=== PATIENT | male | born 1985 | race Caucasian/White ===

== ENCOUNTER 2019-05-31 22:58 | Emergency (ER) | payer MEDICAID ==
[2019-05-31] MEDS ORDERED: CEFAZOLIN 2 GM/D5W RTU 2 GM/50 ML RTUPB IV ONE (23:08)
[2019-05-31] MEDS ORDERED: DIPH/PERTUSS(ACELL)/TETANUS VAC/PF 0.5 ML SYR (>=10YO) IM ONE (23:08)
[2019-05-31] MEDS ORDERED: CEFAZOLIN 1 GM/D5W RTU 2 GM/100 ML RTUPB IV ONE (23:12)
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
[2019-05-31] MEDS ORDERED: ONDANSETRON HCL INJ/PF 4 MG/2 ML SDV IV ONE (23:28)
[2019-05-31 23:31] LABS: ABSOLUTE BASOPHILS # (AUTO) 0.1 10^3/uL (0.0-0.2); ABSOLUTE EOSINOPHILS # (AUTO) 0.3 10^3/uL (0.0-0.6); ABSOLUTE LYMPHOCYTES (AUTO) 4.1 10^3/uL (0.5-4.7); ABSOLUTE MONOCYTES (AUTO) 0.9 10^3/uL (0.1-1.4); ABSOLUTE NEUT (AUTO) 5.9 10^3/uL (1.7-8.2); BASOPHILS % (AUTO) 0.6 % (0-2); EOSINOPHILS % (AUTO) 2.7 % (0-6); HEMOGLOBIN 19.6 g/dL (13.5-17.0); LYMPHOCYTES % (AUTO) 36.2 % (13-45); MEAN CORPUSCULAR HEMOGLOBIN 28.9 pg (27.0-33.4); MEAN CORPUSCULAR HGB CONC 34.7 g/dL (32.0-36.0); MEAN CORPUSCULAR VOLUME 83 fl (80-97); MONOCYTES % (AUTO) 8.3 % (3-13); PLATELET COUNT 253 10^3/uL (150-450); RED BLOOD COUNT 6.81 10^6/uL (4.35-5.55); RED CELL DISTRIBUTION WIDTH 13.1 % (11.5-14.0); SEGMENTED NEUTROPHILS % (AUTO) 52.2 % (42-78); TOTAL CELLS COUNTED % (AUTO) 100 %; WHITE BLOOD COUNT 11.4 10^3/uL (4.0-10.5)
[2019-05-31] MEDS: MORPHINE SULFATE 10 MG/ML INJ IV PRN (23:32)
[2019-05-31 23:35] LABS: INTERNATIONAL RATION (INR) 0.98
[2019-05-31 23:36] LABS: HEMATOCRIT 56.5 % (37.9-51.0)
[2019-05-31 23:43] LABS: ALBUMIN 5.1 g/dL (3.5-5.0); ALKALINE PHOSPHATASE 88 U/L (38-126); ANION GAP 14 (5-19); ASPARTATE AMINO TRANSFERASE 24 U/L (17-59); BILIRUBIN,DIRECT 0.3 mg/dL (0.0-0.4); BILIRUBIN,TOTAL 1.2 mg/dL (0.2-1.3); BLOOD UREA NITROGEN 15 mg/dL (7-20); CALCIUM 10.4 mg/dL (8.4-10.2); CARBON DIOXIDE 24 mmol/L (22-30); CHLORIDE 101 mmol/L (98-107); GLUCOSE 122 mg/dL (75-110); POTASSIUM 4.1 mmol/L (3.6-5.0); TOTAL PROTEIN 8.6 g/dL (6.3-8.2)
[2019-05-31 23:47] LABS: ALCOHOL < 10 mg/dL (NONE DETECTED)
[2019-05-31] MEDS ORDERED: MORPHINE SULFATE 10 MG/ML INJ IV ONE (23:52)
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
[2019-06-01] MEDS: MORPHINE SULFATE 10 MG/ML INJ IV PRN (01:53)
[2019-06-01 02:59] VITALS: BP 139/82
== END 2019-06-01 03:00 | disposition short-term general hospital (02) ==
LOC: ER 22:58
DX: S62.623B Displaced fracture of middle phalanx of left middle finger, initial encounter for open fracture (principal); Z18.89 Other specified retained foreign body fragments; Y92.810 Car as the place of occurrence of the external cause; W32.0XXA Accidental handgun discharge, initial encounter; R23.1 Pallor; R61 Generalized hyperhidrosis; F32.9 Major depressive disorder, single episode, unspecified; F41.9 Anxiety disorder, unspecified; Z79.899 Other long term (current) drug therapy
CPT/HCPCS: 96376; 99285; 90471; 96375; 96365; 86900; 86901; 36415; 86850; 80307; 85025; 85610; 85730; 80053; 73120; 90715; J2270 ×2; J2405; J0690